=== PATIENT | female | born 1990 | race Caucasian/White ===

== ENCOUNTER 2018-04-08 16:00 | Observation (INO) | payer OTHER ==
[2018-04-08 16:31] VITALS: BP 140/76; PULSE 76
== END 2018-04-08 17:05 | disposition home or self-care (01) ==
LOC: OB 16:00
PROVIDERS: ADMIT Family Medicine; ATTEND Family Medicine
DX: Z34.83 Encounter for supervision of other normal pregnancy, third trimester (principal)
CPT/HCPCS: G0378

== ENCOUNTER 2018-04-25 12:30 | Observation (INO) | payer OTHER ==
[2018-04-25] MEDS ORDERED: Lactated Ringers 1,000 ML IV ONE (13:09)
[2018-04-25] MEDS ORDERED: Lactated Ringers 2,000 ML IV ONE (13:10)
[2018-04-25] MEDS ORDERED: BRETHINE 1 MG/ML SQ ONE ×2 (13:12→15:39)
[2018-04-25] MEDS ORDERED: Lactated Ringers 1,000 ML IV SCH (14:30)
[2018-04-25] MEDS ORDERED: PROCARDIA 10 MG PO ONE (15:45)
[2018-04-25 20:07] VITALS: BP 122/82; PULSE 97
[2018-04-25] MEDS ORDERED: PROCARDIA 10 MG ONE (20:51)
[2018-04-25] MEDS: PROCARDIA 10 MG PO SCH ×3 (21:08→21:57)
== END 2018-04-25 22:24 | disposition home or self-care (01) ==
LOC: OB 12:30
PROVIDERS: ADMIT Family Medicine; ATTEND Family Medicine
DX: Z34.83 Encounter for supervision of other normal pregnancy, third trimester (principal)
CPT/HCPCS: G0378 ×2; 96372; A9270-GY

== ENCOUNTER 2018-04-28 10:31 | Observation (INO) | payer OTHER ==
[2018-04-28] MEDS ORDERED: Lactated Ringers 1,000 ML IV SCH (11:00)
[2018-04-28] MEDS ORDERED: Magnesium Sulfate 40 Gm/1000 Ml H2O Premix*** 1,000 ML IV SCH (11:00)
[2018-04-28 11:02] VITALS: BP 152/68; PULSE 105
[2018-04-28] MEDS ORDERED: OMNIPEN 2 GM IV ONE (11:12)
[2018-04-28] MEDS ORDERED: OMNIPEN 2 GM / NACL 100ML 100 ML IV ONE (11:30)
[2018-04-28 11:59] LABS: INR 1.02 (0.8-3.0)
[2018-04-28 12:01] LABS: PTT 26.5 SECONDS (25.3-37.0)
[2018-04-28 12:04] LABS: ALBUMIN 3.4 g/dL (3.5-5.0); ALKALINE PHOSPHATASE 116 U/L (38-126); ANION GAP 13.3 MEQ/L (5-15); BLOOD UREA NITROGEN 7 mg/dL (7-17); CHLORIDE 108 mmol/L (98-107); Calcium 9.3 mg/dL (8.4-10.2); Carbon Dioxide 20 mmol/L (22-30); Creatinine 1 0.55 mg/dL (0.52-1.04); Glucose 88 mg/dL (74-106); Potassium 3.9 mmol/L (3.5-5.1); SGOT/AST 39 U/L (14-36); SGPT/ALT 53 U/L (0-35); SODIUM 138 mmol/L (137-145); Total Protein 6.3 g/dL (6.3-8.2)
== END 2018-04-28 12:15 | disposition home or self-care (01) ==
LOC: UNDOADMOB 10:31 → OB 10:31 → UNDODISOB 12:15
PROVIDERS: ADMIT Family Medicine; ATTEND Family Medicine
DX: O60.03 Preterm labor without delivery, third trimester (principal); Z3A.34 34 weeks gestation of pregnancy
CPT/HCPCS: 36415; 80053; 83735; 85610; 85730; G0378; J0290

== ENCOUNTER 2018-05-10 19:50 | Observation (INO) | payer OTHER ==
[2018-05-10 20:15] VITALS: PULSE 74
[2018-05-10 21:12] VITALS: BP 135/71
== END 2018-05-10 21:10 | disposition home or self-care (01) ==
LOC: OB 19:50 → UNDOADMOB 19:50 → UNDODISOB 21:10
PROVIDERS: ADMIT Family Medicine; ATTEND Family Medicine
DX: Z34.83 Encounter for supervision of other normal pregnancy, third trimester (principal)
CPT/HCPCS: G0378

== ENCOUNTER 2019-02-04 11:28 | Emergency (ER) | payer BC, OTHER ==
[2019-02-04] MEDS ORDERED: Sodium Chloride 0.9% 1000 ML 1,000 ML IV STA (11:52)
[2019-02-04] MEDS ORDERED: Sodium Chloride 0.9% 1000 ML 1,000 ML ONE (11:55)
[2019-02-04 12:23] LABS: BASOPHIL % 0.1 % (0.0-0.4); Basophil (Absolute #) 0.01 (0-0.4); Eosinophil (Absolute #) 0.09 (0-0.5); Granulocyte Absolute (ANC) 6.27 (1.4-6.9); Hematocrit 39.9 % (35-47); Hemoglobin 13.2 gm/dl (12.0-16.0); Lymphocyte (Absolute #) 1.75 (1.0-4.6); Lymphocytes % 20.4 % (24.0-44.0); Mean Cell Volume 89.3 fl (78-100); Mean Corpuscular Hemoglobin 29.5 pg (26-32); Mean Corpuscular Hgb Concent. 33.1 g/dl (32-36); Mean Platelet Volume 12.7 fl (6-9.5); Monocyte (Absolute #) 0.47 (0.0-1.3); Monocytes % 5.5 % (0.0-12.0); Platelet Count 175 K/mm3 (150-450); Red Blood Count 4.47 M/mm3 (4.1-5.4); Red Cell Distribution Width 13.2 % (11.5-14.0); White Blood Count 8.6 K/mm3 (4.0-10.5)
--- NOTE | 2019-02-04 12:38 | ERPHSYRPT ---
- History of Present Illness Time Seen by Provider: 02/04/19 11:40 Source: patient, family Exam Limitations: no limitations Patient Subjective Stated Complaint: first period since daughter born 9 months ago, began bleeding 2 days ago and became real heavy yesterday, soaking a x- large pad every hour and soaking through to clothes, lightheaded and past out at home with her witnessing Triage Nursing Assessment: Brought in to ER by wheelchair, weak, light headed, bleeding large clots per pt, vitals wnl, denies pain Physician History: 28 y/o obese white female presents with sig vaginal bleeding. began 02/02/19 and worsened over last 2 days. this am she passed out. pt underwent a caeserean section 9 months ago. this was her first menstrual period since then. pt is Timing/Duration: day(s) (2) Activites at Onset: none Quality: cramping Onset Location: vaginal Pain Radiation: vaginal Severity of Pain-Max: mild Severity of Pain-Current: mild Prior abdominal problems: other (c section) Modifying Factors: Improves With: nothing Associated Symptoms: vaginal discharge (bleeding), No abdominal pain, No nausea , No vomiting, No dysuria, No nocturia, No polyuria, No urinary frequency, No Allergies/Adverse Reactions: Sulfa (Sulfonamide Antibiotics) Allergy (Verified 02/04/19 11:45) lorazepam [From Ativan] Adverse Reaction (Verified 02/04/19 11:45) Home Medications: Vit,Calc76/Iron/Folic [Pnv 29-1 Tablet] 1 each PO LUNCH 04/08/18 [ History] Sertraline HCl 25 mg PO DAILY 02/04/19 [History] - Review of Systems Constitutional: No Symptoms Eyes: No Symptoms Ears, Nose, & Throat: No Symptoms Respiratory: No Symptoms Cardiac: No Symptoms Abdominal/Gastrointestinal: No Symptoms Genitourinary Symptoms: Vaginal Bleeding Musculoskeletal: No Symptoms Skin: No Symptoms Neurological: No Symptoms Psychological: No Symptoms Endocrine: No Symptoms Hematologic/Lymphatic: No Symptoms Immunological/Allergic: No Symptoms All Other Systems: Reviewed and Negative - Past Medical History Pertinent Past Medical History: Yes Neurological History: No Pertinent History ENT History: No Pertinent History Cardiac History: No Pertinent History Respiratory History: No Pertinent History Endocrine Medical History: No Pertinent History Musculoskeletal History: No Pertinent History GI Medical History: No Pertinent History Psycho-Social History: Anxiety, Depression - Past Surgical History Past Surgical History: Yes Female Surgical History: Dilation & Curettage, Section - Social History Smoking Status: Never smoker Exposure to second hand smoke: Yes Drug Use: none Patient Lives Alone: No - Female History Hx Last Menstrual Period: 02/02/2019 Hx Now: No - Nursing Vital Signs Nursing Vital Signs: Initial Vital Signs Temperature 98.1 F 02/04/19 11:34 Pulse Rate 81 02/04/19 11:34 Blood Pressure 128/78 02/04/19 11:34 O2 Sat by Pulse Oximetry 97 02/04/19 11:34 Pain Scale Pain Intensity 0 - Physical Exam General Appearance: mild distress, alert, anxiety Eye Exam: PERRL/EOMI Ears, Nose, Throat Exam: normal ENT inspection, moist mucous membranes Neck Exam: normal inspection, non-tender, supple, full range of motion Respiratory Exam: normal breath sounds, lungs clear, airway intact, No chest tenderness, No respiratory distress Cardiovascular Exam: regular rate/rhythm, normal heart sounds, normal peripheral pulses Gastrointestinal/Abdomen Exam: soft, normal bowel sounds, No tenderness, No guarding Pelvic Exam: not done Rectal Exam: not done Back Exam: normal inspection, normal range of motion, No CVA tenderness, No vertebral tenderness Extremity Exam: normal inspection, normal range of motion, pelvis stable Neurologic Exam: alert, oriented x 3, cooperative, 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-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 nml as tested Skin Exam: normal color, warm, dry Lymphatic Exam: No adenopathy SpO2 Interpretation: normal SpO2: 97 O2 Delivery: Room Air Ordered Tests: Active Orders 24 hr Category Date Time Status IV Insertion STAT Care 02/04/19 11:52 Active PELVIC [US] Stat Exams 02/04/19 11:53 Completed CBC W DIFF Stat Lab 02/04/19 12:05 Completed CMP Stat Lab 02/04/19 12:05 Completed HCG QUALITATIVE,SERUM Stat Lab 02/04/19 12:05 Completed UA W/RFX UR CULTURE Stat Lab 02/04/19 11:53 Uncollected Medication Summary Discontinued Medications Generic Name Dose Route Start Last Admin Trade Name Freq PRN Reason Stop Dose Admin Sodium Chloride 1,000 mls @ 999 mls/hr 02/04/19 11:52 02/04/19 13:02 Sodium Chloride 0.9% 1000 Ml IV 02/04/19 12:52 Infused .Q1H1M STA Infusion Sodium Chloride Confirm 02/04/19 11:55 Sodium Chloride 0.9% 1000 Ml Administered 02/04/19 11:56 Dose 1,000 mls @ .ROUTE .[facility] Lab/Rad Data: Laboratory Result Diagrams 02/04/19 12:05 02/04/19 12:05 Laboratory Results 02/04/19 02/04/19 02/04/19 Range/Units 12:05 12:05 12:05 WBC (4.0-10.5) K/mm3 RBC (4.1-5.4) M/mm3 Hgb (12.0-16.0) gm/dl Hct (35-47) % MCV (78-100) fl MCH (26-32) pg MCHC (32-36) g/dl RDW (11.5-14.0) % Plt Count (150-450) K/mm3 MPV (6-9.5) fl Gran % (36.0-66.0) % Eos # (Auto) (0-0.5) Absolute Lymphs (auto) (1.0-4.6) Absolute Monos (auto) (0.0-1.3) Lymphocytes % (24.0-44.0) % Monocytes % (0.0-12.0) % Eosinophils % (0.00-5.0) % Basophils % (0.0-0.4) % Absolute Granulocytes (1.4-6.9) Basophils # (0-0.4) Sodium 141 (137-145) mmol/L Potassium 4.2 (3.5-5.1) mmol/L Chloride 107 (98-107) mmol/L Carbon Dioxide 24 (22-30) mmol/L Anion Gap 13.9 (5-15) MEQ/L BUN 19 H (7-17) mg/dL Creatinine 0.89 (0.52-1.04) mg/dL Estimated GFR > 60.0 ML/MIN Glucose 95 (74-106) mg/dL Calcium 9.8 (8.4-10.2) mg/dL Total Bilirubin 0.60 (0.2-1.3) mg/dL AST 28 (14-36) U/L ALT 26 (0-35) U/L Alkaline Phosphatase 50 (38-126) U/L Serum Total Protein 7.8 (6.3-8.2) g/dL Albumin 4.3 (3.5-5.0) g/dL Serum , Qual NEGATIVE (Negative) ABO Group AB Rh Factor POSITIVE Antibody Screen POSITIVE (NEGATIVE) 02/04/19 Range/Units 12:05 WBC 8.6 (4.0-10.5) K/mm3 RBC 4.47 (4.1-5.4) M/mm3 Hgb 13.2 (12.0-16.0) gm/dl Hct 39.9 (35-47) % MCV 89.3 (78-100) fl MCH 29.5 (26-32) pg MCHC 33.1 (32-36) g/dl RDW 13.2 (11.5-14.0) % Plt Count 175 (150-450) K/mm3 MPV 12.7 H (6-9.5) fl Gran % 73.0 H (36.0-66.0) % Eos # (Auto) 0.09 (0-0.5) Absolute Lymphs (auto) 1.75 (1.0-4.6) Absolute Monos (auto) 0.47 (0.0-1.3) Lymphocytes % 20.4 L (24.0-44.0) % Monocytes % 5.5 (0.0-12.0) % Eosinophils % 1.0 (0.00-5.0) % Basophils % 0.1 (0.0-0.4) % Absolute Granulocytes 6.27 (1.4-6.9) Basophils # 0.01 (0-0.4) Sodium (137-145) mmol/L Potassium (3.5-5.1) mmol/L Chloride (98-107) mmol/L Carbon Dioxide (22-30) mmol/L Anion Gap (5-15) MEQ/L BUN (7-17) mg/dL Creatinine (0.52-1.04) mg/dL Estimated GFR ML/MIN Glucose (74-106) mg/dL Calcium (8.4-10.2) mg/dL Total Bilirubin (0.2-1.3) mg/dL AST (14-36) U/L ALT (0-35) U/L Alkaline Phosphatase (38-126) U/L Serum Total Protein (6.3-8.2) g/dL Albumin (3.5-5.0) g/dL Serum , Qual (Negative) ABO Group Rh Factor Antibody Screen (NEGATIVE) - Progress Progress: improved, re-examined Air Movement: good Progress Note: 02/04/19 13:59 pelvic u/s-thickened endometrial stripe. correlate with menstrual cycle. no other acute findings. spoke with dr. gutierrez, pts pcp. ok to discharge pt to home. call her office to arrange follow up appt. dr. gutierrez will call in a combo hormonal pill. pt to take for one week. continue on it. Blood Culture(s) Obtained: No Antibiotics given: No Counseled pt/family regarding: lab results, diagnosis, need for follow-up, rad results - Departure Departure Disposition: Home Clinical Impression: Vaginal bleeding Condition: Stable Critical Care Time: No Referrals: GERHARD GUTIERREZ [Primary Care Provider] - Additional Instructions: meat pickler prescription dr. gutierrez is calling in. ok to continue breast feeding on this medication per dr. gutierrez. call to arrange follow up with her. return to ED if symptoms worsen.
[2019-02-04 12:45] LABS: ALBUMIN 4.3 g/dL (3.5-5.0); ALKALINE PHOSPHATASE 50 U/L (38-126); ANION GAP 13.9 MEQ/L (5-15); BLOOD UREA NITROGEN 19 mg/dL (7-17); CHLORIDE 107 mmol/L (98-107); Calcium 9.8 mg/dL (8.4-10.2); Carbon Dioxide 24 mmol/L (22-30); Creatinine 1 0.89 mg/dL (0.52-1.04); Glucose 95 mg/dL (74-106); Potassium 4.2 mmol/L (3.5-5.1); SGOT/AST 28 U/L (14-36); SGPT/ALT 26 U/L (0-35); SODIUM 141 mmol/L (137-145); Total Protein 7.8 g/dL (6.3-8.2)
[2019-02-04 13:05] VITALS: O2SAT 97
[2019-02-04 13:21] LABS: ABO TYPING AB; RH TYPING POSITIVE
[2019-02-04 13:22] LABS: Antibody Screen POSITIVE (NEGATIVE)
--- NOTE | 2019-02-04 13:29 | XRAY ---
Indication: Heavy bleeding. Two-dimensional transabdominal pelvic sonogram performed. Comparison: None Uterus anteverted measuring 10.5 x 4.5 x 7.1 cm. Myometrium homogeneous. Endometrial stripe measures 17.5 mm in thickness. No endometrial cavity mass or fluid collection. Right ovary measures 4.0 x 1.6 x 2.4 cm and the left measures 2.7 x 2.0 x 3.0 cm with normal color perfusion bilaterally. No suspicious adnexal mass or free fluid. Impression: Thickened endometrial stripe that should be correlated with patient's menstrual cycle. Remaining transabdominal pelvic sonogram is negative.
[2019-02-04 14:29] VITALS: BP 131/81; PULSE 72
[2019-02-04 14:35] LABS: Appearance CLEAR (CLEAR); Bacteria RARE /HPF (NEGATIVE); Bilirubin NEGATIVE (NEGATIVE); Blood LARGE Ery/ul (0-5); Glucose NEGATIVE (NEGATIVE); Ketones NEGATIVE (NEGATIVE); Leukocyte Esterase MODERATE (NEGATIVE); Nitrite NEGATIVE (NEGATIVE); Protein,Urine Dip 30 (Negative); RBC >101 /HPF (0-2); Specific Gravity 1.004 (1.005-1.025); Urobilinogen NEGATIVE mg/dL (0-1)
[2019-02-05 21:31] LABS: AB ID Interp Anti-c
== END 2019-02-04 14:29 | disposition home or self-care (01) ==
LOC: ED 11:28
DX: N93.9 Abnormal uterine and vaginal bleeding, unspecified (principal)
CPT/HCPCS: 36415; 76856; 80053; 81001; 81025; 85025; 86850; 86870; 86900; 86901; 87086; 96360; 96374; 99284

== ENCOUNTER 2022-10-31 07:56 | Emergency (ER) | payer OTHER ==
--- NOTE | 2022-10-31 08:40 | XRAY ---
Indication: Left arm and facial numbness. Multiple contiguous axial images obtained through the head without contrast. Comparison: None Normal appearing brain parenchyma, ventricles, and bony calvarium. Visualized paranasal sinuses and mastoid air cells are clear. Impression: Normal CT head without contrast exam.
--- NOTE | 2022-10-31 08:54 | ERPHSYRPT ---
- History of Present Illness Time Seen by Provider: 10/31/22 08:35 Source: patient Exam Limitations: no limitations Patient Subjective Stated Complaint: Pt c/o of left sided facial and arm numbness that began at approx 0700 while giving report, she now c/o of a headache on the left side of her head, reports a family hx of bells palsey Triage Nursing Assessment: Pt brought self to the ER, hypertensive, rates head pain as 2/10, numbness has now went to the top portion of her leg, when swallowing water, pt stated that her left side of her throat was numb because she couldn't feel the water going down it but she could on the right, states that this has never happened before, denies any problems breathing, pulses normal, skin n/w/d Physician History: This is a 31-year-old morbidly obese white female 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 She had sudden onset of initial perioral numbness followed by left facial numbness and numbness in her left upper extremity and numbness to the anterior portion of her left mid thigh. The perioral numbness has resolved but there is still numbness in the other areas as stated above. She is never had anything like this in the past. She is not on any medication. She denies illicit drug use. She is not on any hypertensive medication but she does present with a blood pressure 139/101. The symptoms came on towards the end of her shift here at the hospital. She did not hit her head. She states there is a family history of Cruz's palsy. She denies chest pain. She denies shortness of breath. She has no abdominal pain. She did have some mild dizziness and left-sided headache but these symptoms have nearly completely resolved. She does not think she is under any more stress than usual. She has had no visual changes. She has not had any recent viral illnesses. Additional information obtained from review of old records from [facility]. Timing/Duration: today Severity: mild (To moderate) Character of Deficits: altered sensation (Perioral, left facial and left upper extremity), Left Facial, LUE Deficits: no difficulties Baseline/Normal Cognition: alert oriented x 3 Current Cognition: alert oriented x 3 Baseline Gait: walks w/o assistance Associated Symptoms: paresthesia (Perioral, left facial and left upper extremity), headache (Left side), No nausea, No vomiting, No numbness/tingling in legs/feet, No ringing in ears, No slurred speech, No vision changes, No chest pain Allergies/Adverse Reactions: Sulfa (Sulfonamide Antibiotics) Allergy (Verified 02/04/19 11:45) lorazepam [From Ativan] Adverse Reaction (Verified 02/04/19 11:45) Home Medications: Vit,Calc76/Iron/Folic [Pnv 29-1 Tablet] 1 each PO LUNCH 04/08/18 [History] Sertraline HCl 25 mg PO DAILY 02/04/19 [History] Hx Influenza Vaccination/Date Given: Yes Travel Risk - International Travel Have you traveled outside of the country in past 3 weeks: No - Coronavirus Screening Are you exhibiting any of the following symptoms?: No - Vaccine Status Have you recieved a Covid-19 vaccination: Yes Rat [employer]: [employer] - Vaccination Dates Date of 2cond Vaccination (if applicable): 2020 - Review of Systems Constitutional: No Symptoms Eyes: No Symptoms Ears, Nose, & Throat: No Symptoms Respiratory: No Symptoms Cardiac: No Symptoms Abdominal/Gastrointestinal: No Symptoms Genitourinary Symptoms: No Symptoms Musculoskeletal: No Symptoms Skin: No Symptoms Neurological: Headache, Parasthesia (Left side left facial, left upper extremity), No Speech Changes Psychological: No Symptoms Endocrine: No Symptoms Hematologic/Lymphatic: No Symptoms Immunological/Allergic: No Symptoms All Other Systems: Reviewed and Negative - Past Medical History Pertinent Past Medical History: Yes Neurological History: No Pertinent History ENT History: No Pertinent History Cardiac History: No Pertinent History Respiratory History: No Pertinent History Endocrine Medical History: No Pertinent History Musculoskeletal History: No Pertinent History GI Medical History: No Pertinent History Psycho-Social History: Anxiety, Depression - Past Surgical History Past Surgical History: Yes Female Surgical History: Dilation & Curettage, Section - Social History Smoking Status: Never smoker Exposure to second hand smoke: No Drug Use: none Patient Lives Alone: No - Female History Hx Last Menstrual Period: [id number] Hx Now: No - Nursing Vital Signs Nursing Vital Signs: Initial Vital Signs Temperature 97.7 F 10/31/22 08:20 Pulse Rate 94 H 10/31/22 08:20 Blood Pressure 139/101 10/31/22 08:20 O2 Sat by Pulse Oximetry 100 10/31/22 08:20 Pain Scale Pain Intensity 2 - Carlos Coma Scale Best Eye Response (Carlos): (4) open spontaneously Best Verbal Response ([place]): (5) oriented Best Motor Response ([place]): (6) obeys commands Carlos Total: 15 - Physical Exam General Appearance: no apparent distress, alert, anxiety, obese Eye Exam: bilateral eye: normal inspection, PERRL, EOMI Ears, Nose, Throat Exam: normal ENT inspection, moist mucous membranes Neck Exam: normal inspection, non-tender, supple, full range of motion Respiratory: normal breath sounds, lungs clear, airway intact, No chest tenderness, No respiratory distress Cardiovascular: regular rate/rhythm, normal heart sounds, normal peripheral pulses Gastrointestinal: soft, normal bowel sounds, No tenderness Pelvic Exam: not done Rectal Exam: not done Back Exam: normal inspection, normal range of motion, No CVA tenderness Extremity Exam: normal inspection, normal range of motion, pelvis stable Mental Status: alert, oriented x 3, 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 Exam: normal hearing, normal speech, PERRL, facial droop (Mild left side), facial paresthesias (Left), tongue midline Coordination/Gait: normal finger to nose, normal gait, normal cerebellar function Motor/Sensory: no motor deficit, no sensory deficit, no pronator drift Skin Exam: normal color, warm, dry SpO2 Interpretation: normal SpO2: 100 O2 Delivery: Room Air - Course Nursing assessment & vital signs reviewed: Yes Ordered Tests: Active Orders 24 hr Category Date Time Status [place] STAT Care 10/31/22 08:33 Active EKG-ER Only STAT Care 10/31/22 08:33 Active IV Insertion STAT Care 10/31/22 08:33 Active Pulse Oximetry (ED) STAT Care 10/31/22 08:33 Active HEAD WITHOUT CONTRAST [CT] Stat Exams 10/31/22 08:09 Completed MRI BRAIN W & W/O CONTRAST [MRI] Stat Exams 10/31/22 10:24 Completed CBC W DIFF Stat Lab 10/31/22 09:00 Completed CMP Stat Lab 10/31/22 09:00 Completed HCG QUALITATIVE,SERUM Stat Lab 10/31/22 08:45 Completed MAGNESIUM Stat Lab 10/31/22 09:00 Completed TROPONIN Q4H Lab 10/31/22 09:00 Completed TROPONIN Q4H Lab 10/31/22 12:45 Ordered TROPONIN Q4H Lab 10/31/22 16:45 Ordered UA W/RFX UR CULTURE Stat Lab 10/31/22 08:45 Completed Urine Triage Profile Stat Lab 10/31/22 08:45 Completed Lab/Rad Data: Laboratory Result Diagrams 10/31/22 09:00 10/31/22 09:00 Laboratory Results 10/31/22 10/31/22 10/31/22 Range/Units 09:00 09:00 09:00 WBC 5.5 (4.0-10.5) x10^3/uL RBC 4.25 (4.1-5.4) x10^6/uL Hgb 11.6 L (12.0-16.0) g/dL Hct 36.6 (35-47) % MCV 86.1 (78-100) fL MCH 27.3 (26-32) pg MCHC 31.7 L (32-36) g/dL RDW 13.4 (11.5-14.0) % Plt Count 176 (150-450) x10^3/uL MPV 12.1 H (7.5-11.0) fL Gran % 45.2 (36.0-66.0) % Immature Gran % (Auto) 0.2 (0.00-0.4) % Nucleat RBC Rel Count 0.0 (0.00-0.1) % Eos # (Auto) 0.10 (0-0.5) x10^3/uL Immature Gran # (Auto) 0.01 (0.00-0.03) x10^3u/L Absolute Lymphs (auto) 2.51 (1.0-4.6) x10^3/uL Absolute Monos (auto) 0.35 (0.0-1.3) x10^3/uL Absolute Nucleated RBC 0.00 (0.00-0.01) x10^3u/L Lymphocytes % 46.0 H (24.0-44.0) % Monocytes % 6.4 (0.0-12.0) % Eosinophils % 1.8 (0.00-5.0) % Basophils % 0.4 (0.0-0.4) % Absolute Granulocytes 2.47 (1.4-6.9) x10^3/uL Basophils # 0.02 (0-0.4) x10^3/uL Sodium 138 (137-145) mmol/L Potassium 3.9 (3.5-5.1) mmol/L Chloride 106 (98-107) mmol/L Carbon Dioxide 27 (22-30) mmol/L Anion Gap 9.4 (5-15) MEQ/L BUN 16 (7-17) mg/dL Creatinine 0.99 (0.52-1.04) mg/dL Estimated GFR > 60.0 ML/MIN Glucose 84 (74-106) mg/dL Calcium 8.7 (8.4-10.2) mg/dL Magnesium 2.0 (1.6-2.3) mg/dL Total Bilirubin 0.60 (0.2-1.3) mg/dL AST 28 (14-36) U/L ALT 24 (0-35) U/L Alkaline Phosphatase 48 (38-126) U/L Troponin I < 0.012 (0.000-0.034) ng/mL Serum Total Protein 7.2 (6.3-8.2) g/dL Albumin 4.3 (3.5-5.0) g/dL Serum , Qual (Negative) Urine Color (Yellow) Urine Appearance (Clear) Urine pH (4.6-8.0) Ur Specific [place] (1.005-1.030) Urine Protein (Negative) Urine Glucose (UA) (Negative) mg/dL Urine Ketones (Negative) Urine Blood (Negative) Urine Nitrite (Negative) Urine Bilirubin (Negative) Urine Urobilinogen (0.2) mg/dL Ur Leukocyte Esterase (Negative) U Hyaline Cast (Auto) (0-2) /LPF Urine Microscopic RBC (0-5) /HPF Urine Microscopic WBC (0-5) /HPF Ur Epithelial Cells (None Seen) /HPF Urine Bacteria (None Seen) /HPF Urine Culture Reflexed (NO) Urine Opiates Level (NEGATIVE) Ur Methadone (NEGATIVE) Urine Barbiturates (NEGATIVE) Ur Phencyclidine (PCP) (NEGATIVE) Urine Amphetamine (NEGATIVE) U Benzodiazepine Level (NEGATIVE) Urine Cocaine (NEGATIVE) Urine Marijuana (THC) (NEGATIVE) 10/31/22 10/31/22 10/31/22 Range/Units 08:45 08:45 08:45 WBC (4.0-10.5) x10^3/uL RBC (4.1-5.4) x10^6/uL Hgb (12.0-16.0) g/dL Hct (35-47) % MCV (78-100) fL MCH (26-32) pg MCHC (32-36) g/dL RDW (11.5-14.0) % Plt Count (150-450) x10^3/uL MPV (7.5-11.0) fL Gran % (36.0-66.0) % Immature Gran % (Auto) (0.00-0.4) % Nucleat RBC Rel Count (0.00-0.1) % Eos # (Auto) (0-0.5) x10^3/uL Immature Gran # (Auto) (0.00-0.03) x10^3u/L Absolute Lymphs (auto) (1.0-4.6) x10^3/uL Absolute Monos (auto) (0.0-1.3) x10^3/uL Absolute Nucleated RBC (0.00-0.01) x10^3u/L Lymphocytes % (24.0-44.0) % Monocytes % (0.0-12.0) % Eosinophils % (0.00-5.0) % Basophils % (0.0-0.4) % Absolute Granulocytes (1.4-6.9) x10^3/uL Basophils # (0-0.4) x10^3/uL Sodium (137-145) mmol/L Potassium (3.5-5.1) mmol/L Chloride (98-107) mmol/L Carbon Dioxide (22-30) mmol/L Anion Gap (5-15) MEQ/L BUN (7-17) mg/dL Creatinine (0.52-1.04) mg/dL Estimated GFR ML/MIN Glucose (74-106) mg/dL Calcium (8.4-10.2) mg/dL Magnesium (1.6-2.3) mg/dL Total Bilirubin (0.2-1.3) mg/dL AST (14-36) U/L ALT (0-35) U/L Alkaline Phosphatase (38-126) U/L Troponin I (0.000-0.034) ng/mL Serum Total Protein (6.3-8.2) g/dL Albumin (3.5-5.0) g/dL Serum , Qual NEGATIVE (Negative) Urine Color Yellow (Yellow) Urine Appearance Clear (Clear) Urine pH 6.5 (4.6-8.0) Ur Specific [place] 1.025 (1.005-1.030) Urine Protein Negative (Negative) Urine Glucose (UA) Negative (Negative) mg/dL Urine Ketones Trace A (Negative) Urine Blood Negative (Negative) Urine Nitrite Negative (Negative) Urine Bilirubin Negative (Negative) Urine Urobilinogen 1.0 A (0.2) mg/dL Ur Leukocyte Esterase Negative (Negative) U Hyaline Cast (Auto) 0-2 (0-2) /LPF Urine Microscopic RBC 0-2 (0-5) /HPF Urine Microscopic WBC 0-2 (0-5) /HPF Ur Epithelial Cells Rare (None Seen) /HPF Urine Bacteria None Seen (None Seen) /HPF Urine Culture Reflexed NO (NO) Urine Opiates Level NEGATIVE (NEGATIVE) Ur Methadone NEGATIVE (NEGATIVE) Urine Barbiturates NEGATIVE (NEGATIVE) Ur Phencyclidine (PCP) NEGATIVE (NEGATIVE) Urine Amphetamine NEGATIVE (NEGATIVE) U Benzodiazepine Level NEGATIVE (NEGATIVE) Urine Cocaine NEGATIVE (NEGATIVE) Urine Marijuana (THC) NEGATIVE (NEGATIVE) - Progress Progress: improved, re-examined Progress Note: 10/31/22 08:56 CT scan of head without contrast is normal 10/31/22 10:30 Medical decision making: Patient was reexamined and her symptoms of left upper e xtremity and left anterior thigh numbness have nearly completely resolved. Her left facial numbness is improving but still mildly present. She has full motor function. Patient underwent a teleneurology consultation. This was performed by Dr. Dubon. He recommends a baby aspirin daily. He also recommends a brain MRI with and without contrast. He states that if this test is normal or nonacut e, patient can be discharged home to follow-up with her primary care provider and neurologist on an outpatient basis. If there is significant findings that are of concern, he stated to call him back. 10/31/22 12:38 MRI brain with contrast shows a normal study. Counseled pt/family regarding: lab results, diagnosis, need for follow-up, rad results - Departure Departure Disposition: Home Clinical Impression: Left facial numbness, Left upper extremity numbness Condition: Stable Critical Care Time: No [facility] - Follow up/PCP as directed Additional Instructions: Drink plenty of fluids. Take your medication as prescribed. Take a baby aspirin a day. Follow-up with your primary care provider for further evaluation and management including possible referral to neurologist if indicated.
[2022-10-31 09:12] LABS: Absolute Neutrophil Ct (ANC) 2.47 x10^3/uL (1.4-6.9); Basophil (Absolute #) 0.02 x10^3/uL (0-0.4); Eosinophil % 1.8 % (0.00-5.0); Hematocrit 36.6 % (35-47); Hemoglobin 11.6 g/dL (12.0-16.0); Lymphocyte (Absolute #) 2.51 x10^3/uL (1.0-4.6); Mean Cell Volume 86.1 fL (78-100); Mean Corpuscular Hemoglobin 27.3 pg (26-32); Mean Corpuscular Hgb Concent. 31.7 g/dL (32-36); Mean Platelet Volume 12.1 fL (7.5-11.0); Monocyte (Absolute #) 0.35 x10^3/uL (0.0-1.3); Monocytes % 6.4 % (0.0-12.0); Neutrophil % 45.2 % (36.0-66.0); Platelet Count 176 x10^3/uL (150-450); Red Blood Count 4.25 x10^6/uL (4.1-5.4); Red Cell Distribution Width 13.4 % (11.5-14.0); White Blood Count 5.5 x10^3/uL (4.0-10.5)
[2022-10-31 09:19] LABS: ALBUMIN 4.3 g/dL (3.5-5.0); ALKALINE PHOSPHATASE 48 U/L (38-126); ANION GAP 9.4 MEQ/L (5-15); BLOOD UREA NITROGEN 16 mg/dL (7-17); CHLORIDE 106 mmol/L (98-107); Calcium 8.7 mg/dL (8.4-10.2); Carbon Dioxide 27 mmol/L (22-30); Creatinine 1 0.99 mg/dL (0.52-1.04); EST GLOMERULAR FILTRATION RATE > 60.0 ML/MIN; Glucose 84 mg/dL (74-106); Potassium 3.9 mmol/L (3.5-5.1); SGOT/AST 28 U/L (14-36); SGPT/ALT 24 U/L (0-35); SODIUM 138 mmol/L (137-145); Total Protein 7.2 g/dL (6.3-8.2)
[2022-10-31 09:26] LABS: Amphetamine,Urine NEGATIVE (NEGATIVE); Barbiturate,Urine NEGATIVE (NEGATIVE); Benzodiazepine,Urine NEGATIVE (NEGATIVE); Cocaine,Urine NEGATIVE (NEGATIVE); Methadone,Urine NEGATIVE (NEGATIVE); Opiate,Urine NEGATIVE (NEGATIVE); PCP,Urine NEGATIVE (NEGATIVE); THC,Urine NEGATIVE (NEGATIVE)
[2022-10-31 09:27] LABS: ADD URINE CULTURE? NO (NO); Appearance Clear (Clear); Bacteria None Seen /HPF (None Seen); Bilirubin Negative (Negative); Blood Negative (Negative); Epithelial Cells Rare /HPF (None Seen); Glucose, Urine Negative (Negative); Hyaline Casts 0-2 /LPF (0-2); Ketones Trace (Negative); Leukocyte Esterase Negative (Negative); Nitrite Negative (Negative); Ph 6.5 (4.6-8.0); Protein,Urine Dip Negative (Negative); RBC 0-2 /HPF (0-5); Specific Gravity 1.025 (1.005-1.030); WBC 0-2 /HPF (0-5)
[2022-10-31 10:45] VITALS: BP 142/97; PULSE 79
--- NOTE | 2022-10-31 12:34 | XRAY ---
Indication: Left-sided numbness. Normal CT head without contrast exam early in the day.. Sagittal, coronal, and axial MRI brain performed using pre-and post T1, T2, FLAIR, diffusion, and ADC sequences. 30 cc Dotarem contrast used. Comparison: None Ventriculosulcal pattern appears symmetric. No acute intracranial hemorrhage, abnormal extra-axial fluid collection, or mass effect. Diffusion images are negative for restricted signal. Following gadolinium, there is no abnormal enhancing intra or extra-axial mass. Fourth ventricle is midline without hydrocephalus. 7/8 cranial nerve complex bilaterally symmetric. Normal flow-void signal within the major intracerebral circulation. Normal-appearing craniocervical junction and sella turcica. Paranasal sinuses are clear. Impression: Normal MRI brain with contrast exam.
[2022-10-31 12:39] VITALS: O2SAT 100
== END 2022-10-31 12:58 | disposition home or self-care (01) ==
LOC: ED 07:56
DX: R20.0 Anesthesia of skin (principal); R03.0 Elevated blood-pressure reading, without diagnosis of hypertension; Z79.899 Other long term (current) drug therapy
CPT/HCPCS: 36000; 36415; 70450; 70553; 80053; 80307; 81001; 83735; 84484; 84703; 85025; 93005; 93041; 94760; 99284

== ENCOUNTER 2024-05-20 00:13 | Emergency (ER) | payer OTHER ==
[2024-05-20] MEDS: XYLOCAINE 1% HCL 20 ML MDV IJ ONE (00:15)
[2024-05-20 00:44] VITALS: TEMP 97.8
--- NOTE | 2024-05-20 00:46 | ERPHSYRPT ---
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 Slow oozing. Moderate intensity sharp pain. Up-to-date with tetanus. No injury anywhere else. Allergies/Adverse Reactions: Sulfa (Sulfonamide Antibiotics) Allergy (Verified 02/04/19 11:45) lorazepam [From Ativan] Adverse Reaction (Verified 02/04/19 11:45) Home Medications: Vit,Calc76/Iron/Folic [Pnv 29-1 Tablet] 1 each PO LUNCH 04/08/18 [History] Sertraline HCl 25 mg PO DAILY 02/04/19 [History] Hx Influenza Vaccination/Date Given: Yes Travel Risk - International Travel Have you traveled outside of the country in past 3 weeks: No - Review of Systems Constitutional: No Symptoms Ears, Nose, & Throat: No Symptoms Respiratory: No Symptoms Cardiac: No Symptoms Abdominal/Gastrointestinal: No Symptoms Musculoskeletal: Injury Skin: Skin Lesions Neurological: No Symptoms Endocrine: No Symptoms Hematologic/Lymphatic: No Symptoms - Past Medical History Pertinent Past Medical History: Yes Neurological History: No Pertinent History ENT History: No Pertinent History Cardiac History: No Pertinent History Respiratory History: No Pertinent History Endocrine Medical History: No Pertinent History Musculoskeletal History: No Pertinent History GI Medical History: No Pertinent History Psycho-Social History: Anxiety, Depression - Past Surgical History Past Surgical History: Yes Female Surgical History: Dilation & Curettage, Section - Social History Smoking Status: Never smoker Exposure to second hand smoke: No Drug Use: none Patient Lives Alone: No - Physical Exam General Appearance: no apparent distress Eye Exam: PERRL/EOMI Neck Exam: normal inspection, full range of motion Respiratory Exam: normal breath sounds, lungs clear Cardiovascular Exam: regular rate/rhythm, normal heart sounds Back Exam: other (2 cm jagged edges laceration right upper buttock/lower back. Minimal oozing.) Extremity Exam: normal inspection, normal range of motion Neurologic Exam: alert, oriented x 3, cooperative Skin Exam: normal color SpO2 Interpretation: normal SpO2: 96 O2 Delivery: Room Air Procedures - Laceration/Wound Repair Right Buttock Time of Procedure: 00:46 Wound Location: Right Wound Length (cm): 2 Wound's Depth, Shape: irregular Wound Explored: clean Irrigated: Yes Hibiclens Prep: Yes Anesthesia: 1% Lidocaine Volume Anesthetic (ccs): 5 Wound Repaired With: sutures Suture Size/Type: 3-0, nylon Number of Sutures: 2 (Mattress sutures) Layer Closure?: No Sterile Dressing Applied?: Yes Ordered Tests: Medication Summary Discontinued Medications Generic Name Dose Route Start Last Admin Trade Name Steffi PRN Reason Stop Dose Admin Cephalexin HCl 500 mg 05/20/24 00:32 Cephalexin Mh500 Mg Capsule PO 05/20/24 00:33 STAT ONE - Progress Progress: improved Progress Note: 05/20/24 00:47 33-year-old is evaluated in the ER after she accidentally sat on a chair with a screw sharp edges. Has a laceration. Minimal oozing. Thoroughly cleaned and repair is done. She is up-to-date with tetanus. Will give her prophylactic Keflex. Recommended taking Tylenol ibuprofen and outpatient follow-up. Discussed signs symptoms of worsening needing return to ER which she seems understanding. Stable for discharge. Counseled pt/family regarding: diagnosis, need for follow-up Medical Desision Making - Risk of complications The pt has a mod risk of morbidity or mortality based on: Need for prescription drug management, Need for minor surgical intervention in patient with know risk factors - Departure Departure Disposition: Home Clinical Impression: Laceration of buttock without foreign body Condition: Stable Critical Care Time: No [facility]Primary Care Provider] - Follow up with PCP 1 day Instructions: Laceration Repair With Stitches (DC) Additional Instructions: Intermittent ice application. Tylenol/ibuprofen as needed. Follow-up with primary care/wound care for reevaluation. Suture removal in 7 to 10 days. Return to ER for increasing pain swelling discharge/fever chills etc. Prescriptions: Cephalexin Mh 500 mg [Keflex 500 mg] 500 mg PO TID #21 cap
[2024-05-20] MEDS ORDERED: KEFLEX 500 MG ONE (00:53)
[2024-05-20] MEDS: KEFLEX 500 MG PO ONE (00:54)
[2024-05-20 02:58] VITALS: BP 137/88; PULSE 76; RESP 18; O2SAT 98
== END 2024-05-20 01:05 | disposition home or self-care (01) ==
LOC: ED 00:13 → SUPCPDRO 00:13 → ED 01:05
DX: S31.811A Laceration without foreign body of right buttock, initial encounter (principal); W26.8XXA Contact with other sharp object(s), not elsewhere classified, initial encounter; Y92.238 Other place in hospital as the place of occurrence of the external cause; Y99.0 Civilian activity done for income or pay; Z79.899 Other long term (current) drug therapy
CPT/HCPCS: 12001; 96372; 99283; A9270-GY